=== PATIENT | female | born 1965 | race Caucasian/White ===

== ENCOUNTER → 2016-05-27 | Outpatient (CLI) | payer BC ==
[2016-05-27 18:43] LABS: BASO % 0.7 % (0.0-1.0); EOS # 0.2 K/mm3 (0.0-0.50); EOS % 2.9 % (0.0-3.0); LARGE UNSTAINED CELL # 0.1 K/mm3 (0.0-0.4); LARGE UNSTAINED CELL % 1.7 % (0.0-4.0); LYMPH # 1.8 K/mm3 (1.5-4.5); LYMPH % 31.5 % (24.0-44.0); MEAN CORPUSCULAR HEMOGLOBIN 28.7 pg (27.0-33.0); MEAN CORPUSCULAR HGB CONC 33.1 g/dl (32.0-36.5); MEAN CORPUSCULAR VOLUME 86.7 fl (80.0-96.0); MONO # 0.3 K/mm3 (0.0-0.8); MONO % 5.4 % (0.0-5.0); NEUTROPHILS % 57.7 % (36.0-66.0); PLATELET COUNT, AUTOMATED 236 k/mm3 (150-450); WHITE BLOOD COUNT 5.3 K/mm3 (4.0-10.0)
[2016-05-27 19:27] LABS: ALBUMIN 4.1 GM/DL (3.2-5.2); ALBUMIN/GLOBULIN RATIO 1.46 (1.00-1.93); ALKALINE PHOSPHATASE 90 U/L (45-117); ALT/SGPT 71 U/L (12-78); ANION GAP 6 MEQ/L (8-16); AST/SGOT 36 U/L (15-37); BILIRUBIN,TOTAL 0.4 MG/DL (0.2-1.0); BLOOD UREA NITROGEN 12 MG/DL (7-18); CALCIUM LEVEL 9.1 MG/DL (8.5-10.1); CARBON DIOXIDE LEVEL 29 MEQ/L (21-32); CHLORIDE LEVEL 105 MEQ/L (98-107); CREATININE FOR GFR 0.77 MG/DL (0.55-1.02); GLOMERULAR FILTRATION RATE > 60.0 (>58); GLUCOSE, FASTING 88 MG/DL (70-105); POTASSIUM SERUM 4.3 MEQ/L (3.5-5.1); SODIUM LEVEL 140 MEQ/L (136-145); TOTAL PROTEIN 6.9 GM/DL (6.4-8.2)
== END ==
LOC: M SMT 12:23
PROVIDERS: ATTEND Internal Medicine Gastroenterology
DX: K52.89 Other specified noninfective gastroenteritis and colitis (principal)

== ENCOUNTER → 2016-06-02 | Outpatient (CLI) | payer BC ==
[~2016-06-02] MED LIST: ATOR1TAB19 PO; LEXA1TAB PO; LIAL1.2T PO; LISI10TA4 PO; OMEP20CA3 PO; VITA50003 PO
--- NOTE | 2016-06-10 09:06 | DEXA ---
AP SPINE L1 - L4 1.196 0.0 -0.6 LT FEMUR TOTAL 1.116 0.9 0.6 RT FEMUR TOTAL 1.096 0.7 0.4 TOTAL BODY TOTAL OTHER DUAL FEMUR FRAX* ASSESSMENT Risk factors: Glucocorticoids (chronic), history of fracture ( adult). 10 year probability of fracture Major osteoporotic fracture 9.4 % Hip fracture 0.2 % COMMENTS: Normal bone densitometry of the spine and hips. FOLLOW-UP: Recommendation for the next bone density exam: 5 years. HUGH
== END ==
LOC: M WHC 13:36 → EDUNIT# 14:00
PROVIDERS: ATTEND Internal Medicine Gastroenterology
DX: Z79.52 Long term (current) use of systemic steroids (principal); K52.89 Other specified noninfective gastroenteritis and colitis

== ENCOUNTER → 2016-06-16 | Outpatient (CLI) | payer BC ==
[~2016-06-16] VITALS: Ht 166.4 cm; Wt 94.3 kg
[~2016-06-16] MED LIST changes: +LIDOCAINE 2% INJ 100 MG/5 ML SDV (FOR ANES.) As Ordered ONE; +NS 1,000 ML IV SCH; +PROPOFOL 200 MG/20 ML VIAL As Ordered ONE
--- NOTE | 2016-06-16 11:59 | ROOR ---
Patient Name: Bertha Garcia Procedure Date: 06/16/2016 11:34 AM Date of : 1965 Age: 51 Room: [facility], [facility] Gender: Female Note Status: Finalized Procedure: Colonoscopy Indications: High risk colon cancer surveillance: Inflammatory bowel disease Providers: Олег COLMENARES MD Referring MD: DONNY ROJAS MD Requesting Provider: Medicines: Monitored Anesthesia Care Complications: No immediate complications. Procedure: Pre-Anesthesia Assessment: - The heart rate, respiratory rate, oxygen saturations, blood pressure, adequacy of pulmonary ventilation, and response to care were monitored throughout the procedure. The Colonoscope was introduced through the anus and advanced to 10 cm into the ileum. The colonoscopy was performed without difficulty. The patient tolerated the procedure well. The quality of the bowel preparation was good. Findings: The perianal and digital rectal examinations were normal. The terminal ileum contained two scattered aphthae. This was biopsied with a cold forceps for histology. Segmental mild inflammation characterized by congestion (edema) and erythema was found in the rectum, in the recto-sigmoid colon and in the sigmoid colon. The exam was otherwise without abnormality. Biopsies were obtained with cold forceps for evaluation of inflammatory bowel disease. Impression: - Two Aphtha in the terminal ileum. Biopsied. - Segmental mild inflammation was found in the rectum, in the recto-sigmoid colon and in the sigmoid colon secondary to proctosigmoid colitis. - The examination was otherwise normal. - Segmental biopsies performed throughout. 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 However erosions/aphta in terminal ileum may be suggestive of ileocolonic crohns disease or an overlap syndrome--await biopsies of TI to delineate acute vs chronic.) Recommendation: - Telephone endoscopist for pathology results in 2 weeks. - Continue present medications. Олег Colmenares MD Олег COLMENARES MD 06/16/2016 11:58:47 AM This report has been signed electronically. Number of Addenda: 0 Note Initiated On: 06/16/2016 11:34 AM Estimated Blood Loss: Estimated blood loss: none.
[2016-06-16 12:10] VITALS: BP 140/82
== END | disposition home or self-care (01) ==
LOC: M OPP 09:30
PROVIDERS: ATTEND Internal Medicine Gastroenterology
DX: Z12.11 Encounter for screening for malignant neoplasm of colon (principal); K52.3 Indeterminate colitis; K63.89 Other specified diseases of intestine; I10 Essential (primary) hypertension; K50.90 Crohn's disease, unspecified, without complications; R12 Heartburn; R06.02 Shortness of breath; F41.9 Anxiety disorder, unspecified; E78.5 Hyperlipidemia, unspecified; G43.909 Migraine, unspecified, not intractable, without status migrainosus; R06.83 Snoring; K21.9 Gastro-esophageal reflux disease without esophagitis; Z87.410 Personal history of cervical dysplasia; Z87.891 Personal history of nicotine dependence; Z88.1 Allergy status to other antibiotic agents; Z79.899 Other long term (current) drug therapy; Z80.42 Family history of malignant neoplasm of prostate; Z80.8 Family history of malignant neoplasm of other organs or systems

== ENCOUNTER → 2017-04-09 | Outpatient (REF) | payer BC ==
[2017-04-09 15:37] LABS: LUTEINIZING HORMONE 0.8 mIU/mL
[2017-04-09 15:37] LABS: PROGESTERONE < 0.2 NG/ML
[2017-04-09 15:38] LABS: ESTRADIOL 109.6 PG/ML; FOLLICLE STIMULATING HORMONE 3.4 mIU/mL
[2017-04-13 00:06] LABS: TESTOSTERONE FREE (DIRECT) 3.2 pg/mL (0.0-4.2)
== END ==
LOC: M LAB REF 14:50
DX: N95.1 Menopausal and female climacteric states (principal)
CPT/HCPCS: 83001

== ENCOUNTER → 2018-04-07 | Outpatient (REF) | payer BC ==
[~2018-04-07] MED LIST changes: +CITA20TA4; -LIDOCAINE 2% INJ 100 MG/5 ML SDV (FOR ANES.) As Ordered ONE; +LOSA50TA88; -NS 1,000 ML IV SCH; +ONDA4TAB6; -PROPOFOL 200 MG/20 ML VIAL As Ordered ONE; +SULF1POW; +VITA1TAB27 PO; -VITA50003 PO; +VITA50005 PO
[2018-04-07 18:34] LABS: BASO # 0.1 10^3/uL (0.0-0.2); BASO % 0.7 % (0.0-1.0); EOS # 0.2 10^3/uL (0.0-0.50); EOS % 2.6 % (0.0-3.0); HEMATOCRIT 40.4 % (36.0-47.0); HEMOGLOBIN 13.6 g/dl (12.0-15.5); LYMPH # 1.8 10^3/uL (1.5-4.5); LYMPH % 25.8 % (24.0-44.0); MEAN CORPUSCULAR HEMOGLOBIN 29.4 pg (27.0-33.0); MEAN CORPUSCULAR HGB CONC 33.7 g/dl (32.0-36.5); MEAN CORPUSCULAR VOLUME 87.4 fl (80.0-96.0); MONO # 0.5 10^3/uL (0.0-0.8); NEUTROPHILS # 4.4 10^3/uL (1.8-7.7); NEUTROPHILS % 63.3 % (36.0-66.0); PLATELET COUNT, AUTOMATED 249 10^3/uL (150-450); RED BLOOD COUNT 4.62 10^6/uL (4.00-5.40); WHITE BLOOD COUNT 6.9 10^3/uL (4.0-10.0)
[2018-04-07 19:03] LABS: ALBUMIN 3.9 GM/DL (3.2-5.2); ALT/SGPT 24 U/L (12-78); BILIRUBIN,TOTAL 0.3 MG/DL (0.2-1.0); BLOOD UREA NITROGEN 14 MG/DL (7-18); C REACTIVE PROTEIN QUANTITATIV 0.32 MG/DL (0.00-0.30); CALCIUM LEVEL 8.7 MG/DL (8.5-10.1); CARBON DIOXIDE LEVEL 28 MEQ/L (21-32); CHLORIDE LEVEL 103 MEQ/L (98-107); FREE T4 0.88 NG/DL (0.76-1.46); GLOMERULAR FILTRATION RATE > 60.0 (>51); GLUCOSE, FASTING 79 MG/DL (70-100); POTASSIUM SERUM 4.3 MEQ/L (3.5-5.1); SODIUM LEVEL 138 MEQ/L (136-145); TOTAL PROTEIN 6.8 GM/DL (6.4-8.2); VITAMIN B12 LEVEL 608 PG/ML (247-911)
[2018-04-07 19:18] LABS: ERYTHROCYTE SEDIMENTATION RATE 8 mm/hr (0-30)
== END ==
LOC: M LABDRAWP 15:08
PROVIDERS: ATTEND Internal Medicine Gastroenterology
DX: K52.3 Indeterminate colitis (principal)

== ENCOUNTER 2018-04-13 13:50 | Emergency (ER) | payer BC ==
[~2018-04-13] VITALS: Ht 167.6 cm; Wt 90.9 kg
[~2018-04-13 13:50] MED LIST changes: -CITA20TA4; -LOSA50TA88; -ONDA4TAB6; -SULF1POW; -VITA1TAB27 PO
[2018-04-13] MEDS ORDERED: ONDA4TAB6 (14:08)
[2018-04-13] MEDS ORDERED: SULF1POW (14:08)
[2018-04-13] MEDS ORDERED: VITA1TAB27 PO (14:08)
[2018-04-13] MEDS ORDERED: CITA20TA4 (14:08)
[2018-04-13] MEDS ORDERED: LOSA50TA88 (14:08)
[2018-04-13] MEDS ORDERED: ONDANSETRON 4MG/2ML VIAL (J2405) IV ONE (14:30)
[2018-04-13] MEDS ORDERED: NS 1,000 ML IV ONE (14:30)
[2018-04-13 14:44] LABS: BASO % 0.8 % (0.0-1.0); EOS # 0.1 10^3/uL (0.0-0.50); EOS % 1.9 % (0.0-3.0); HEMATOCRIT 40.3 % (36.0-47.0); HEMOGLOBIN 13.7 g/dl (12.0-15.5); LYMPH # 0.6 10^3/uL (1.5-4.5); LYMPH % 11.6 % (24.0-44.0); MEAN CORPUSCULAR VOLUME 85.4 fl (80.0-96.0); MONO # 0.6 10^3/uL (0.0-0.8); MONO % 11.2 % (0.0-5.0); NEUTROPHILS # 3.9 10^3/uL (1.8-7.7); NEUTROPHILS % 74.1 % (36.0-66.0); PLATELET COUNT, AUTOMATED 212 10^3/uL (150-450); RED BLOOD COUNT 4.72 10^6/uL (4.00-5.40); WHITE BLOOD COUNT 5.3 10^3/uL (4.0-10.0)
[2018-04-13 15:12] LABS: ERYTHROCYTE SEDIMENTATION RATE 12 mm/hr (0-30)
[2018-04-13 15:14] LABS: ALBUMIN 3.7 GM/DL (3.2-5.2); ALT/SGPT 202 U/L (12-78); BILIRUBIN,DIRECT 0.1 MG/DL (0.0-0.2); BILIRUBIN,TOTAL 0.5 MG/DL (0.2-1.0); BLOOD UREA NITROGEN 6 MG/DL (7-18); C REACTIVE PROTEIN QUANTITATIV 1.52 MG/DL (0.00-0.30); CALCIUM LEVEL 8.5 MG/DL (8.5-10.1); CARBON DIOXIDE LEVEL 24 MEQ/L (21-32); CHLORIDE LEVEL 105 MEQ/L (98-107); GLOMERULAR FILTRATION RATE > 60.0 (>51); GLUCOSE, FASTING 93 MG/DL (70-100); LIPASE 63 U/L (73-393); POTASSIUM SERUM 3.7 MEQ/L (3.5-5.1); SODIUM LEVEL 138 MEQ/L (136-145); TOTAL PROTEIN 6.8 GM/DL (6.4-8.2)
[2018-04-13] MEDS: GASTROGRAFIN SOLUTION 30ML PO SCH ×3 (15:15→15:48)
[2018-04-13] MEDS ORDERED: ISOVUE-370 76% 100ML VIAL (Q9967) As Ordered ONE (16:44)
--- NOTE | 2018-04-13 17:47 | REP ---
CT ABDOMEN AND PELVIS WITH IV AND ORAL CONTRAST: 04/13/2018. Clinical history: Left-sided abdominal pain, history of Crohn disease. Technique: Oral Gastrografin mixture per our protocol given and bolus of 100 ml Isovue 370 with scanning through the abdomen and pelvis. Both coronal and sagittal reconstructions were provided. Findings: CT abdomen: No prior study. Lung bases are clear. The heart is not enlarged. There is no pericardial thickening or effusion. The liver, spleen, gallbladder, pancreas, adrenal glands and kidneys were grossly unremarkable. Fluid or oral contrast seen in small bowel loops without dilatation, wall thickening or inflammatory change. Cecum shows some slight thickening of its wall. However, the right colon to the hepatic flexure and mid transverse colon was unremarkable. The distal transverse colon, splenic flexure and left colon showed collapse and thickening of the wall without significant inflammatory changes adjacent. A few of the small bowel loops in the central abdomen show some wall thickening and mild stricturing. These are ones that are immediately subjacent to the left rectus and midline, best seen on image 72 and adjacent on the axial images. The remainder of the mid to distal small bowel loops until the terminal ileum were unremarkable. The aorta is without aneurysm. There are a few tiny periaortic, mesenteric and other retroperitoneal nodes. Bone windows show limbus vertebrae at L4 but no compression deformity, spondylolysis or other acute finding. Visualized ribs intact. CT pelvis: The bony sacrum, SI joints, iliac bones, hips and ischium were grossly intact. Distal left colon, sigmoid and rectum show collapse and some bowel wall thickening but no pericolonic inflammatory changes in the fat. Uterus absent. Vaginal cuff intact. No renal, ureteral or bladder stone and no hydronephrosis or hydroureter. No bladder wall thickening or mass. Mid to distal ileum intact until the terminal ileum where there was some wall thickening. Only mild ingris cecal inflammatory change. No ventral or inguinal hernia. Impression: 1. Evidence suggesting some chronic colitis involving the distal transverse colon through the rectum with bowel collapse and wall thickened and edematous but without inflammatory changes in the adjacent fat. 2. Terminal ileum and ileocecal valve region with the cecum show some wall thickening also suggestive of Crohn disease. I do not see ascites, abscess or mass. The appendix is seen and normal. 3. Solid organs in the upper abdomen, gallbladder, stomach and the abdominal wall grossly unremarkable. No hernia. No ascites. No adenopathy. Electronically Signed by Best Fernandez MD 04/13/2018 09:28 P
[2018-04-13 18:24] VITALS: BP 132/78
--- NOTE | 2018-04-18 20:46 | ED PDOC ---
Post-Departure Follow-Up victor hugo duncan faxed formal report of ct abd/p for fu Claudia Sargent MD Apr 18, 2018 20:46
== END 2018-04-13 18:27 | disposition home or self-care (01) ==
LOC: M ED 13:50
DX: A07.2 Cryptosporidiosis (principal); K50.90 Crohn's disease, unspecified, without complications; Z79.899 Other long term (current) drug therapy; Z88.1 Allergy status to other antibiotic agents; Z87.891 Personal history of nicotine dependence
CPT/HCPCS: 74177; 80048; 80076; 81001; 83605; 83690; 85025; 85652; 86140; 87507; 96361; 96374; 99284; J2405; Q9963; Q9967

== ENCOUNTER → 2018-07-22 | Outpatient (REF) | payer BC ==
[~2018-07-22] MED LIST changes: +CITA20TA6; +LOSA50TA88; +ONDA4TAB6; +SULF1POW; +VITA1TAB27 PO
[2018-07-22 11:59] LABS: BASO % 0.5 % (0.0-1.0); EOS # 0.2 10^3/uL (0.0-0.50); EOS % 2.6 % (0.0-3.0); HEMATOCRIT 38.5 % (36.0-47.0); HEMOGLOBIN 13.1 g/dl (12.0-15.5); LYMPH # 1.6 10^3/uL (1.5-4.5); MEAN CORPUSCULAR HEMOGLOBIN 29.4 pg (27.0-33.0); MEAN CORPUSCULAR VOLUME 86.5 fl (80.0-96.0); MONO # 0.4 10^3/uL (0.0-0.8); MONO % 7.1 % (0.0-5.0); NEUTROPHILS # 3.6 10^3/uL (1.8-7.7); NEUTROPHILS % 61.3 % (36.0-66.0); PLATELET COUNT, AUTOMATED 236 10^3/uL (150-450); RED BLOOD COUNT 4.45 10^6/uL (4.00-5.40); WHITE BLOOD COUNT 5.8 10^3/uL (4.0-10.0)
[2018-07-22 12:24] LABS: ERYTHROCYTE SEDIMENTATION RATE 9 mm/hr (0-30)
[2018-07-22 12:27] LABS: ALBUMIN 3.5 GM/DL (3.2-5.2); ALT/SGPT 23 U/L (12-78); BILIRUBIN,TOTAL 0.4 MG/DL (0.2-1.0); BLOOD UREA NITROGEN 15 MG/DL (7-18); CALCIUM LEVEL 8.4 MG/DL (8.5-10.1); CARBON DIOXIDE LEVEL 27 MEQ/L (21-32); CHLORIDE LEVEL 105 MEQ/L (98-107); CREATININE FOR GFR 0.81 MG/DL (0.55-1.30); GLOMERULAR FILTRATION RATE > 60.0 (>51); GLUCOSE, FASTING 105 MG/DL (70-100); SODIUM LEVEL 139 MEQ/L (136-145); TOTAL PROTEIN 6.9 GM/DL (6.4-8.2)
== END ==
LOC: M LABDRAWP 10:45
PROVIDERS: ATTEND Internal Medicine Gastroenterology
DX: K52.3 Indeterminate colitis (principal)

== ENCOUNTER → 2018-07-26 | Outpatient (REF) | payer BC | LOC: M LAB REF 10:06 | PROVIDERS: ATTEND Internal Medicine Gastroenterology | DX: K52.3 Indeterminate colitis (principal) ==

== ENCOUNTER → 2018-10-14 | Outpatient (REF) | payer BC ==
[~2018-10-14] MED LIST changes: -CITA20TA6; +CITA20TA6 PO; -LOSA50TA88; +LOSA50TA88 PO; +OMEP1CAP73 PO; -OMEP20CA3 PO; +VITA1CAP25 PO
[2018-10-14 10:48] LABS: ALBUMIN 3.6 GM/DL (3.2-5.2); ALT/SGPT 24 U/L (12-78); BILIRUBIN,TOTAL 0.4 MG/DL (0.2-1.0); BLOOD UREA NITROGEN 13 MG/DL (7-18); CALCIUM LEVEL 8.5 MG/DL (8.5-10.1); CARBON DIOXIDE LEVEL 30 MEQ/L (21-32); CHLORIDE LEVEL 104 MEQ/L (98-107); CHOLESTEROL LEVEL 218 MG/DL (<200); CHOLESTEROL RISK RATIO 5.891 (<5); CREATININE FOR GFR 0.78 MG/DL (0.55-1.30); GLOMERULAR FILTRATION RATE > 60.0 (>51); GLUCOSE, FASTING 80 MG/DL (70-100); HDL CHOLESTEROL 37 MG/DL (>40); LDL CHOLESTEROL 146 MG/DL (<100); NON-HDL-C 181 MG/DL; SODIUM LEVEL 140 MEQ/L (136-145); TOTAL PROTEIN 6.5 GM/DL (6.4-8.2); TRIGLYCERIDES LEVEL 173 MG/DL (<150)
== END ==
LOC: M LABDRAWP 08:36
PROVIDERS: ATTEND Family Medicine
DX: E78.5 Hyperlipidemia, unspecified (principal)

== ENCOUNTER → 2019-01-11 | Outpatient (REF) | payer BC ==
[~2019-01-11] MED LIST changes: -OMEP1CAP73 PO; +OMEP20CA4 PO
== END ==
LOC: M LAB REF 10:06
PROVIDERS: ATTEND Internal Medicine Gastroenterology
DX: R19.7 Diarrhea, unspecified (principal)

== ENCOUNTER 2019-01-13 09:37 | Day surgery (SDC) | payer BC ==
[~2019-01-13] VITALS: Ht 167.6 cm; Wt 91.2 kg
[~2019-01-13 09:37] MED LIST changes: +NS 1,000 ML IV ONE
[2019-01-13] MEDS ORDERED: PROPOFOL 200 MG/20 ML VIAL As Ordered ONE ×2 (10:52→10:53)
[2019-01-13] MEDS ORDERED: LIDOCAINE 2% INJ 100 MG/5 ML SDV (FOR ANES.) As Ordered ONE (10:53)
--- NOTE | 2019-01-13 11:07 | ROOR ---
Patient Name: Bertha Garcia Procedure Date: 01/13/2019 10:40 AM Date of : 1965 Age: 53 Room: [facility] Gender: Female Note Status: Finalized Procedure: Colonoscopy Indications: Diarrhea, Suspected Crohn's disease Providers: Олег CERVANTES MD Referring MD: Best Hutchison DO Requesting Provider: Medicines: Monitored Anesthesia Care Complications: No immediate complications. Procedure: Pre-Anesthesia Assessment: - The heart rate, respiratory rate, oxygen saturations, blood pressure, adequacy of pulmonary ventilation, and response to care were monitored throughout the procedure. The Colonoscope was introduced through the anus and advanced to 15 cm into the ileum. The colonoscopy was performed without difficulty. The patient tolerated the procedure well. The quality of the bowel preparation was good. Findings: The perianal and digital rectal examinations were normal. Multiple scattered erosions were found in the rectum, in the sigmoid colon and in the descending colon. This was biopsied with a cold forceps for histology. The terminal ileum contained a few scattered aphthae. This was biopsied with a cold forceps for histology. The exam was otherwise without abnormality on direct and retroflexion views. Impression: - Multiple (10-15) small shallow erosions/aphtha in the rectum, in the sigmoid colon and in the descending colon. Biopsied. - Multiple (7-10) small shallow erosions/aphtha in the terminal ileum. Biopsied. - The examination was otherwise normal on direct and retroflexion views. Recommendation: - Your earlier stool testing showed you had/have E coli infection in stool. --I will start you on antibiotic for 5 days.--Sent to your pharmacy - Return to my office in 2 weeks. (to discuss biopsies and additional treatment if necessary for crohns disease) Олег Cervantes MD Олег CERVANTES MD 01/13/2019 11:06:44 AM Electronically signed by Олег CERVANTES MD Number of Addenda: 0 Note Initiated On: 01/13/2019 10:40 AM Estimated Blood Loss: Estimated blood loss: none.
[2019-01-13 11:30] VITALS: BP 129/78
== END 2019-01-13 11:34 | disposition home or self-care (01) ==
LOC: M OPP 09:37
PROVIDERS: ATTEND Internal Medicine Gastroenterology
DX: K62.6 Ulcer of anus and rectum (principal); K63.89 Other specified diseases of intestine; R19.7 Diarrhea, unspecified; K21.9 Gastro-esophageal reflux disease without esophagitis; Z79.899 Other long term (current) drug therapy; Z99.2 Dependence on renal dialysis; Z88.1 Allergy status to other antibiotic agents; Z87.891 Personal history of nicotine dependence; Z80.42 Family history of malignant neoplasm of prostate; Z80.0 Family history of malignant neoplasm of digestive organs; Z87.19 Personal history of other diseases of the digestive system

== ENCOUNTER 2019-05-30 09:03 | Outpatient (CLI) | payer BC ==
[~2019-05-30] VITALS: Ht 165.1 cm; Wt 97.5 kg
[~2019-05-30 09:03] MED LIST changes: -NS 1,000 ML IV ONE; +OMEP1CAP73 PO; -OMEP20CA4 PO
[2019-05-30] MEDS ORDERED: VEDOLIZUMAB 300 MG in NS 250 ML IV ONE (09:15)
[2019-05-30 09:38] VITALS: BP 148/81
[2019-05-30 10:50] VITALS: BP 139/82
== END 2019-05-30 11:00 | disposition home or self-care (01) ==
LOC: M INFU 09:03
PROVIDERS: ATTEND Internal Medicine Gastroenterology
DX: K51.90 Ulcerative colitis, unspecified, without complications (principal)
CPT/HCPCS: 96365; J3380

== ENCOUNTER 2019-06-13 08:47 | Outpatient (CLI) | payer BC ==
[~2019-06-13] VITALS: Ht 167.6 cm; Wt 97.5 kg
[2019-06-13 09:00] VITALS: BP 137/78
[2019-06-13] MEDS ORDERED: VEDOLIZUMAB 300 MG in NS 250 ML IV ONE (09:00)
== END 2019-06-13 10:15 | disposition home or self-care (01) ==
LOC: M INFU 08:47
PROVIDERS: ATTEND Internal Medicine Gastroenterology
DX: K50.90 Crohn's disease, unspecified, without complications (principal); Z88.1 Allergy status to other antibiotic agents
CPT/HCPCS: 96365; J3380

== ENCOUNTER → 2019-06-15 | Outpatient (CLI) | payer BC ==
[2019-06-15 16:23] LABS: ALBUMIN 3.9 GM/DL (3.2-5.2); ALT/SGPT 25 U/L (12-78); BILIRUBIN,TOTAL 0.3 MG/DL (0.2-1.0); BLOOD UREA NITROGEN 13 MG/DL (7-18); CALCIUM LEVEL 8.9 MG/DL (8.5-10.1); CARBON DIOXIDE LEVEL 28 MEQ/L (21-32); CHLORIDE LEVEL 103 MEQ/L (98-107); CREATININE FOR GFR 0.86 MG/DL (0.55-1.30); GLOMERULAR FILTRATION RATE > 60.0 (>51); GLUCOSE, FASTING 89 MG/DL (70-100); SODIUM LEVEL 136 MEQ/L (136-145); TOTAL PROTEIN 7.1 GM/DL (6.4-8.2)
== END ==
LOC: M PLALAB 12:47
PROVIDERS: ATTEND Family Medicine
DX: I10 Essential (primary) hypertension (principal)

== ENCOUNTER 2019-07-11 08:38 | Outpatient (CLI) | payer BC ==
[~2019-07-11] VITALS: Ht 167.6 cm; Wt 97.5 kg
[2019-07-11 08:43] VITALS: BP 140/88
[2019-07-11] MEDS ORDERED: VEDOLIZUMAB 300 MG in NS 250 ML IV ONE (08:45)
[2019-07-11 09:40] VITALS: BP 136/81
== END 2019-07-11 09:40 | disposition home or self-care (01) ==
LOC: M INFU 08:38
PROVIDERS: ATTEND Internal Medicine Gastroenterology
DX: K50.90 Crohn's disease, unspecified, without complications (principal)
CPT/HCPCS: 96365; J3380

== ENCOUNTER 2019-09-05 08:55 | Outpatient (CLI) | payer BC ==
[~2019-09-05] VITALS: Ht 167.6 cm; Wt 97.5 kg
[2019-09-05 08:30] VITALS: BP 137/76
[2019-09-05] MEDS ORDERED: VEDOLIZUMAB 300 MG in NS 250 ML IV ONE (09:15)
[2019-09-05 10:25] VITALS: BP 134/72
== END 2019-09-05 10:25 | disposition home or self-care (01) ==
LOC: M INFU 08:55
PROVIDERS: ATTEND Internal Medicine Gastroenterology
DX: K50.90 Crohn's disease, unspecified, without complications (principal)
CPT/HCPCS: 96365; J3380

== ENCOUNTER → 2019-10-31 | Outpatient (CLI) | payer BC ==
[~2019-10-31] MED LIST changes: +ENTY1INJ IV
== END ==
LOC: M INFU 15:54
PROVIDERS: ATTEND Internal Medicine Gastroenterology
DX: K50.90 Crohn's disease, unspecified, without complications (principal)

== ENCOUNTER 2019-12-26 08:53 | Outpatient (CLI) | payer BC ==
[~2019-12-26] VITALS: Ht 167.6 cm; Wt 97.5 kg
[~2019-12-26 08:53] MED LIST changes: -ENTY1INJ IV
[2019-12-26] MEDS ORDERED: VEDOLIZUMAB 300 MG in NS 250 ML IV ONE (09:00)
[2019-12-26 09:09] VITALS: BP 143/78
[2019-12-26 09:12] VITALS: BP 143/78
[2019-12-26] MEDS ORDERED: ENTY1INJ IV (09:23)
[2019-12-26 10:10] VITALS: BP 132/83
[2020-01-02 09:35] LABS: TPMTGEN1 SEE SEPARATE REPORT
== END 2019-12-26 10:10 | disposition home or self-care (01) ==
LOC: M INFU 08:53
PROVIDERS: ATTEND Internal Medicine Gastroenterology
DX: K50.90 Crohn's disease, unspecified, without complications (principal); Z88.1 Allergy status to other antibiotic agents
CPT/HCPCS: 36415; 81335; 82542; 82657; 96365; J3380

== ENCOUNTER 2020-02-20 08:57 | Outpatient (CLI) | payer BC ==
[~2020-02-20] VITALS: Ht 167.6 cm; Wt 97.5 kg
[~2020-02-20 08:57] MED LIST changes: +ENTY1INJ IV
[2020-02-20] MEDS ORDERED: VEDOLIZUMAB 300 MG in NS 250 ML IV ONE (09:00)
[2020-02-20 09:05] VITALS: BP 136/79
[2020-02-20 10:05] VITALS: BP 134/77
== END 2020-02-20 10:15 | disposition home or self-care (01) ==
LOC: M INFU 08:57
PROVIDERS: ATTEND Internal Medicine Gastroenterology
DX: K51.90 Ulcerative colitis, unspecified, without complications (principal)
CPT/HCPCS: 96365; J3380

== ENCOUNTER → 2020-02-29 | Outpatient (CLI) | payer BC ==
--- NOTE | 2020-03-01 15:00 | SLEEPHOME ---
DIAGNOSTIC HOME SLEEP TEST DATE: 02/29/2020 ORDERED BY: Janey Avilez NP Diagnostic home sleep testing was performed due to concern for the obstructive sleep apnea syndrome. For testing, a nocturnal T3 respiratory monitoring device was used. Continuous record was made of pulse, oxygen saturation, air flow, chest and abdominal strain, and body position. 9 hours and 59 minutes of data were reviewed. There were 6 hours and 17 minutes marked as time in bed. During the interval marked time in bed, there were 169 respiratory events identified of 10 seconds in duration or greater for a respiratory event index 26.9. The events were primarily obstructive. Baseline pulse rate 65. Pulse rate range 52 to 91. Baseline saturation was 94%. Saturations fell to 84%. Testing was performed in both the supine and non-supine positions. IMPRESSION: Abnormal home sleep testing with repetitive respiratory events and oxygen desaturations to 84% with a respiratory event index of 26.9 is consistent with the obstructive sleep apnea syndrome. RECOMMENDATION: The patient should be encouraged to undergo a formal sleep evaluation.
== END ==
LOC: M SLEEP HO 10:19
PROVIDERS: ATTEND Nurse Practitioner Adult Health
DX: G47.30 Sleep apnea, unspecified (principal); R06.83 Snoring; R40.0 Somnolence

== ENCOUNTER 2020-04-16 08:45 | Outpatient (CLI) | payer BC ==
[~2020-04-16] VITALS: Ht 167.6 cm; Wt 97.5 kg
[2020-04-16] MEDS ORDERED: VEDOLIZUMAB 300 MG in NS 250 ML IV ONE (09:00)
[2020-04-16 09:03] VITALS: BP 122/74
[2020-04-16 09:04] VITALS: BP 122/74
[2020-04-16 09:57] VITALS: BP 116/71
== END 2020-04-16 10:00 | disposition home or self-care (01) ==
LOC: M INFU 08:45
PROVIDERS: ATTEND Internal Medicine Gastroenterology
DX: K51.90 Ulcerative colitis, unspecified, without complications (principal); Z88.8 Allergy status to other drugs, medicaments and biological substances
CPT/HCPCS: 96365; J3380

== ENCOUNTER → 2020-04-16 | Outpatient (CLI) | payer BC ==
[~2020-04-16] MED LIST changes: +LISI10TA22 PO; -LISI10TA4 PO
[2020-04-16 10:25] LABS: ALBUMIN 3.6 GM/DL (3.2-5.2); ALT/SGPT 29 U/L (12-78); BILIRUBIN,TOTAL 0.5 MG/DL (0.2-1.0); BLOOD UREA NITROGEN 12 MG/DL (7-18); CALCIUM LEVEL 8.8 MG/DL (8.5-10.1); CARBON DIOXIDE LEVEL 25 MEQ/L (21-32); CHLORIDE LEVEL 105 MEQ/L (98-107); CREATININE FOR GFR 0.82 MG/DL (0.55-1.30); GLOMERULAR FILTRATION RATE > 60.0 (>51); GLUCOSE, FASTING 84 MG/DL (70-100); POTASSIUM SERUM 4.9 MEQ/L (3.5-5.1); SODIUM LEVEL 137 MEQ/L (136-145); TOTAL PROTEIN 6.9 GM/DL (6.4-8.2)
== END ==
LOC: M LAB 08:58
PROVIDERS: ATTEND Family Medicine
DX: I10 Essential (primary) hypertension (principal)

== ENCOUNTER → 2020-05-14 | Outpatient (CLI) | payer BC ==
--- NOTE | 2020-05-15 13:33 | SLEEPCENT ---
NOCTURNAL POLYSOMNOGRAPHY CPAP TITRATION DATE: 05/14/2020 ORDERED BY: Janey Avilez NP Nocturnal polysomnography was performed for the titration of pressure therapy in this patient with obstructive sleep apnea syndrome with apnea-hypopnea index of 26.9. For testing, the patient was fit with a ResMed Mirage FX nasal mask of standard size was used, 4 cm of water pressure were applied to the circuit, and the lights were extinguished. 8 hours and 20 minutes of data were reviewed. There were 421 minutes of sleep identified. Sleep latency was mildly prolonged at 39 minutes. REM latency was prolonged at 135 minutes. Sleep architecture was good with three REM cycles. Overall sleep efficiency was 84.8%. The patient's electrocardiogram showed a sinus rhythm with an average heart rate of 56 beats per minute. EEG showed normal waveforms for wake and sleep. Respiratory events were fully palliated with CPAP at a pressure of +9. There was some minor limb activity noted and snoring early in the study. IMPRESSION: Obstructive sleep apnea syndrome (G47.33). RECOMMENDATION: Nightly use of pressure therapy 9 cm of water.
== END ==
LOC: M SLEEP 20:00
PROVIDERS: ATTEND Nurse Practitioner Adult Health
DX: G47.33 Obstructive sleep apnea (adult) (pediatric) (principal)

== ENCOUNTER → 2020-06-03 | Outpatient (CLI) | payer BC ==
[2020-06-03 11:41] LABS: BASO % 0.7 % (0.0-1.0); EOS # 0.2 10^3/uL (0.0-0.5); HEMATOCRIT 40.1 % (36.0-47.0); HEMOGLOBIN 13.1 g/dl (12.0-15.5); LYMPH # 1.6 10^3/uL (1.5-5.0); LYMPH % 28.6 % (24.0-44.0); MEAN CORPUSCULAR HGB CONC 32.7 g/dl (32.0-36.5); MEAN CORPUSCULAR VOLUME 88.9 fl (80.0-96.0); MONO # 0.5 10^3/uL (0.0-0.8); MONO % 7.9 % (2.0-8.0); NEUTROPHILS # 3.4 10^3/uL (1.5-8.5); NEUTROPHILS % 59.1 % (36.0-66.0); PLATELET COUNT, AUTOMATED 219 10^3/uL (150-450); RED BLOOD COUNT 4.51 10^6/uL (4.00-5.40); WHITE BLOOD COUNT 5.7 10^3/uL (4.0-10.0)
[2020-06-03 11:58] LABS: ERYTHROCYTE SEDIMENTATION RATE 9 mm/hr (0-30)
[2020-06-03 12:22] LABS: ALT/SGPT 27 U/L (12-78); BILIRUBIN,TOTAL 0.5 MG/DL (0.2-1.0); BLOOD UREA NITROGEN 16 MG/DL (7-18); CARBON DIOXIDE LEVEL 29 MEQ/L (21-32); CHLORIDE LEVEL 107 MEQ/L (98-107); CREATININE FOR GFR 0.75 MG/DL (0.55-1.30); FREE T4 0.89 NG/DL (0.76-1.46); GLOMERULAR FILTRATION RATE > 60.0 (>51); GLUCOSE, FASTING 86 MG/DL (70-100); IRON (FE) 68 UG/DL (50-170); PERCENT SATURATION 23.2 % (13.2-45.0); POTASSIUM SERUM 4.1 MEQ/L (3.5-5.1); SODIUM LEVEL 140 MEQ/L (136-145); TOTAL IRON BINDING CAPACITY 293 UG/DL (250-450); VITAMIN B12 LEVEL 467 PG/ML (247-911)
== END ==
LOC: M LAB 10:06
PROVIDERS: ATTEND Internal Medicine Gastroenterology
DX: K50.818 Crohn's disease of both small and large intestine with other complication (principal)

== ENCOUNTER → 2020-06-04 | Outpatient (REF) | payer BC | LOC: M LAB REF 11:43 | PROVIDERS: ATTEND Internal Medicine Gastroenterology | DX: K50.818 Crohn's disease of both small and large intestine with other complication (principal) ==

== ENCOUNTER 2020-06-11 09:21 | Outpatient (CLI) | payer BC ==
[~2020-06-11] VITALS: Ht 167.6 cm; Wt 97.5 kg
[~2020-06-11 09:21] MED LIST changes: +VEDOLIZUMAB 300 MG in NS 250 ML IV ONE
[2020-06-11 09:44] VITALS: BP 127/78
[2020-06-11 10:41] VITALS: BP 124/79
== END 2020-06-11 10:41 | disposition home or self-care (01) ==
LOC: M INFU 09:21
PROVIDERS: ATTEND Internal Medicine Gastroenterology
DX: K51.90 Ulcerative colitis, unspecified, without complications (principal)
CPT/HCPCS: 96365; J3380

== ENCOUNTER 2020-08-06 13:02 | Outpatient (CLI) | payer BC ==
[~2020-08-06] VITALS: Ht 167.6 cm; Wt 97.5 kg
[~2020-08-06 13:02] MED LIST changes: -VEDOLIZUMAB 300 MG in NS 250 ML IV ONE
[2020-08-06] MEDS ORDERED: VEDOLIZUMAB 300 MG in NS 250 ML IV ONE (14:00)
[2020-08-06 14:04] VITALS: BP 162/74
[2020-08-06 14:05] VITALS: BP 162/74
[2020-08-06 15:17] VITALS: BP 156/82
== END 2020-08-06 15:15 | disposition home or self-care (01) ==
LOC: M INFU 13:02
PROVIDERS: ATTEND Internal Medicine Gastroenterology
DX: K51.90 Ulcerative colitis, unspecified, without complications (principal)
CPT/HCPCS: 96365; J3380

== ENCOUNTER 2020-10-08 12:51 | Outpatient (CLI) | payer BC ==
[~2020-10-08] VITALS: Ht 167.6 cm; Wt 97.5 kg
[2020-10-08 13:08] VITALS: BP 126/83
[2020-10-08] MEDS ORDERED: VEDOLIZUMAB 300 MG in NS 250 ML IV ONE (13:30)
[2020-10-08 14:10] VITALS: BP 138/67
== END 2020-10-08 14:10 | disposition home or self-care (01) ==
LOC: M INFU 12:51
PROVIDERS: ATTEND Internal Medicine Gastroenterology
DX: K51.90 Ulcerative colitis, unspecified, without complications (principal)
CPT/HCPCS: 96365; J3380

== ENCOUNTER → 2020-12-13 | Outpatient (CLI) | payer BC ==
[2020-12-13 13:23] LABS: BASO % 0.5 % (0.0-1.0); EOS # 0.1 10^3/uL (0.0-0.5); EOS % 2.1 % (0.0-3.0); HEMATOCRIT 42.1 % (36.0-47.0); HEMOGLOBIN 13.9 g/dl (12.0-15.5); LYMPH # 1.8 10^3/uL (1.5-5.0); LYMPH % 28.9 % (24.0-44.0); MEAN CORPUSCULAR HEMOGLOBIN 28.5 pg (27.0-33.0); MEAN CORPUSCULAR VOLUME 86.3 fl (80.0-96.0); MONO # 0.3 10^3/uL (0.0-0.8); MONO % 5.4 % (2.0-8.0); NEUTROPHILS # 3.9 10^3/uL (1.5-8.5); NEUTROPHILS % 62.3 % (36.0-66.0); PLATELET COUNT, AUTOMATED 255 10^3/uL (150-450); RED BLOOD COUNT 4.88 10^6/uL (4.00-5.40); WHITE BLOOD COUNT 6.3 10^3/uL (4.0-10.0)
[2020-12-13 13:56] LABS: ERYTHROCYTE SEDIMENTATION RATE 12 mm/hr (0-30)
[2020-12-13 14:02] LABS: ALBUMIN 3.6 GM/DL (3.2-5.2); ALT/SGPT 24 U/L (12-78); BILIRUBIN,TOTAL 0.4 MG/DL (0.2-1.0); BLOOD UREA NITROGEN 12 MG/DL (7-18); CALCIUM LEVEL 8.9 MG/DL (8.5-10.1); CARBON DIOXIDE LEVEL 30 MEQ/L (21-32); CHLORIDE LEVEL 105 MEQ/L (98-107); CREATININE FOR GFR 0.93 MG/DL (0.55-1.30); GLOMERULAR FILTRATION RATE > 60.0 (>51); GLUCOSE, FASTING 89 MG/DL (70-100); POTASSIUM SERUM 4.2 MEQ/L (3.5-5.1); SODIUM LEVEL 138 MEQ/L (136-145); TOTAL PROTEIN 7.3 GM/DL (6.4-8.2)
== END ==
LOC: M PLALAB 10:56
PROVIDERS: ATTEND Internal Medicine Gastroenterology
DX: K52.3 Indeterminate colitis (principal)

== ENCOUNTER 2020-12-18 08:47 | Outpatient (CLI) | payer BC ==
[~2020-12-18] VITALS: Ht 167.6 cm; Wt 97.5 kg
[~2020-12-18 08:47] MED LIST changes: +VEDOLIZUMAB 300 MG in NS 250 ML IV ONE
[2020-12-18 08:50] VITALS: BP_SYST 139; BP_SYST 144; BP_DIAS 81; BP_DIAS 86
[2020-12-18 10:01] VITALS: BP 127/77
== END 2020-12-18 10:05 | disposition home or self-care (01) ==
LOC: M INFU 08:47
PROVIDERS: ATTEND Internal Medicine Gastroenterology
DX: K51.90 Ulcerative colitis, unspecified, without complications (principal); Z88.8 Allergy status to other drugs, medicaments and biological substances
CPT/HCPCS: 96365; J3380

== ENCOUNTER → 2020-12-18 | Outpatient (REF) | payer BC | LOC: M LAB REF 09:33 | PROVIDERS: ATTEND Internal Medicine Gastroenterology | DX: K52.3 Indeterminate colitis (principal) ==

== ENCOUNTER → 2020-12-19 | Outpatient (CLI) | payer BC ==
[~2020-12-19] MED LIST changes: +GLUCAGON INJ 1MG VIAL As Ordered ONE; +ISOVUE-370 76% 100ML VIAL As Ordered ONE; +NEULUMEX 0.1% SUSPENSION 450ML BOTTLE (FORMERLY VOLUMEN) As Ordered ONE; -VEDOLIZUMAB 300 MG in NS 250 ML IV ONE
--- NOTE | 2020-12-19 15:59 | REPVR ---
PROCEDURE INFORMATION: Exam: CT Abdomen And Pelvis With Contrast Exam date and time: 12/19/2020 2:37 PM Age: 55 years old Clinical indication: Condition or disease; Intestinal condition; Crohn's disease; Additional info: K52.3 crohns w/ colitis, wt loss TECHNIQUE: Imaging protocol: Computed tomography of the abdomen and pelvis with contrast. Axial, coronal and sagittal reformatted images were created and reviewed. 3D rendering (Not supervised by radiologist): MIP and/or 3D reconstructed images were created by the technologist. Radiation optimization: All CT scans at this facility use at least one of these dose optimization techniques: automated exposure control; mA and/or kV adjustment per patient size (includes targeted exams where dose is matched to clinical indication); or iterative reconstruction. Contrast material: ISOVUE 370; Contrast volume: 100 ml; Contrast route: INTRAVENOUS (IV); COMPARISON: CT ABD/PEL W/IV ORAL CONTRAS 04/13/2018 4:54 PM FINDINGS: Liver: Unremarkable. Gallbladder and bile ducts: No radiodense gallstones. No biliary ductal dilatation. Pancreas: Unremarkable. Spleen: Unremarkable. Adrenal glands: Normal. No mass. Kidneys and ureters: No mass. No radiodense calculi. No hydronephrosis. Stomach and bowel: Scattered colonic diverticula without evidence of diverticulitis. No obstruction. No bowel wall thickening. No pneumatosis. Appendix: Normal. Intraperitoneal space: No free fluid. No organized fluid collection. No free air. Vasculature: Minimal atherosclerotic disease. No aneurysm or dissection. Lymph nodes: No pathologically enlarged lymph nodes. Urinary bladder: Unremarkable as visualized. Reproductive: Status post hysterectomy. Bones/joints: No acute osseous abnormality. Osteopenia. Mild degenerative changes. Limbus L4 vertebra. Soft tissues: Small, fat containing umbilical hernia. IMPRESSION: 1. No CT evidence of acute intra-abdominal or pelvic pathology. 2. Additional findings, as above. Electronically signed by: Lalito Gonzalez On 12/19/2020 15:59:31 PM
== END ==
LOC: M RAD 12:26
PROVIDERS: ATTEND Internal Medicine Gastroenterology
DX: K52.3 Indeterminate colitis (principal); K50.818 Crohn's disease of both small and large intestine with other complication; R63.4 Abnormal weight loss
CPT/HCPCS: 74177; J1610; Q9967

== ENCOUNTER 2021-02-12 08:18 | Outpatient (CLI) | payer BC ==
[~2021-02-12] VITALS: Ht 167.6 cm; Wt 92.9 kg
[~2021-02-12 08:18] MED LIST changes: -LOSA50TA28 PO; +LOSA50TA88 PO
[2021-02-12 08:45] VITALS: BP 133/76
[2021-02-12] MEDS ORDERED: VEDOLIZUMAB 300 MG in NS 250 ML IV ONE (09:00)
[2021-02-12 10:15] VITALS: BP 128/70
== END 2021-02-12 10:15 | disposition home or self-care (01) ==
LOC: M INFU 08:18
PROVIDERS: ATTEND Internal Medicine Gastroenterology
DX: K51.90 Ulcerative colitis, unspecified, without complications (principal); Z88.8 Allergy status to other drugs, medicaments and biological substances
CPT/HCPCS: 96365; J3380

== ENCOUNTER → 2021-02-12 | Outpatient (CLI) | payer BC ==
[~2021-02-12] MED LIST changes: -GLUCAGON INJ 1MG VIAL As Ordered ONE; -ISOVUE-370 76% 100ML VIAL As Ordered ONE; +LOSA50TA28 PO; -LOSA50TA88 PO; -NEULUMEX 0.1% SUSPENSION 450ML BOTTLE (FORMERLY VOLUMEN) As Ordered ONE
[2021-02-12 09:36] LABS: BASO % 0.9 % (0.0-1.0); EOS # 0.2 10^3/uL (0.0-0.5); EOS % 4.6 % (0.0-3.0); HEMATOCRIT 38.8 % (36.0-47.0); HEMOGLOBIN 13.2 g/dl (12.0-15.5); LYMPH # 1.7 10^3/uL (1.5-5.0); LYMPH % 37.4 % (24.0-44.0); MEAN CORPUSCULAR HEMOGLOBIN 28.8 pg (27.0-33.0); MEAN CORPUSCULAR VOLUME 84.7 fl (80.0-96.0); MONO # 0.3 10^3/uL (0.0-0.8); MONO % 7.4 % (2.0-8.0); NEUTROPHILS # 2.3 10^3/uL (1.5-8.5); PLATELET COUNT, AUTOMATED 242 10^3/uL (150-450); RED BLOOD COUNT 4.58 10^6/uL (4.00-5.40); WHITE BLOOD COUNT 4.6 10^3/uL (4.0-10.0)
[2021-02-12 10:09] LABS: ALBUMIN 3.6 GM/DL (3.2-5.2); ALT/SGPT 36 U/L (12-78); BILIRUBIN,TOTAL 0.3 MG/DL (0.2-1.0); BLOOD UREA NITROGEN 15 MG/DL (7-18); CALCIUM LEVEL 8.8 MG/DL (8.5-10.1); CARBON DIOXIDE LEVEL 25 MEQ/L (21-32); CHLORIDE LEVEL 109 MEQ/L (98-107); CHOLESTEROL LEVEL 244 MG/DL (<200); CHOLESTEROL RISK RATIO 6.594 (<5); CREATININE FOR GFR 0.72 MG/DL (0.55-1.30); GLOMERULAR FILTRATION RATE > 60.0 (>51); GLUCOSE, FASTING 90 MG/DL (70-100); HDL CHOLESTEROL 37 MG/DL (>40); LDL CHOLESTEROL 170 MG/DL (<100); NON-HDL-C 207 MG/DL; POTASSIUM SERUM 4.6 MEQ/L (3.5-5.1); SODIUM LEVEL 139 MEQ/L (136-145); TOTAL PROTEIN 6.9 GM/DL (6.4-8.2); TRIGLYCERIDES LEVEL 184 MG/DL (<150)
[2021-02-12 10:59] LABS: CREATININE, URINE 97.6 MG/DL; MALB URINE SIEMENS 7.2 MG/L; MAU/CREAT RATIO 7.3 MCG/MG (0.0-30.0)
== END ==
LOC: M LAB 08:51
PROVIDERS: ATTEND Family Medicine
DX: E78.5 Hyperlipidemia, unspecified (principal)

== ENCOUNTER 2021-04-09 08:50 | Outpatient (CLI) | payer BC ==
[~2021-04-09] VITALS: Ht 167.6 cm; Wt 92.9 kg
[2021-04-09 08:50] VITALS: BP 143/85
[~2021-04-09 08:50] MED LIST changes: +LOSA50TA28 PO; -LOSA50TA88 PO; +VEDOLIZUMAB 300 MG in NS 250 ML IV ONE
[2021-04-09 09:59] VITALS: BP 140/85
== END 2021-04-09 10:00 | disposition home or self-care (01) ==
LOC: M INFU 08:50
PROVIDERS: ATTEND Internal Medicine Gastroenterology
DX: K51.90 Ulcerative colitis, unspecified, without complications (principal); Z88.8 Allergy status to other drugs, medicaments and biological substances
CPT/HCPCS: 96365; J3380

== ENCOUNTER → 2021-04-21 | Outpatient (CLI) | payer BC ==
[~2021-04-21] MED LIST changes: -VEDOLIZUMAB 300 MG in NS 250 ML IV ONE
== END ==
LOC: M WHC 13:30
PROVIDERS: ATTEND Family Medicine
DX: Z12.31 Encounter for screening mammogram for malignant neoplasm of breast (principal); M85.80 Other specified disorders of bone density and structure, unspecified site

== ENCOUNTER 2021-07-30 08:29 | Outpatient (CLI) | payer BC ==
[~2021-07-30] VITALS: Ht 167.6 cm; Wt 93.8 kg
[2021-07-30 08:35] VITALS: BP 129/78
[2021-07-30] MEDS ORDERED: VEDOLIZUMAB 300 MG in NS 250 ML IV ONE (09:00)
[2021-07-30 10:00] VITALS: BP 145/82
== END 2021-07-30 10:00 | disposition home or self-care (01) ==
LOC: M INFU 08:29
PROVIDERS: ATTEND Internal Medicine Gastroenterology
DX: K51.90 Ulcerative colitis, unspecified, without complications (principal); Z88.8 Allergy status to other drugs, medicaments and biological substances
CPT/HCPCS: 96365; J3380

== ENCOUNTER 2021-09-24 08:40 | Outpatient (CLI) | payer BC ==
[~2021-09-24] VITALS: Ht 167.6 cm; Wt 93.8 kg
[2021-09-24 08:40] VITALS: BP 142/72
[2021-09-24] MEDS ORDERED: VEDOLIZUMAB 300 MG in NS 250 ML IV ONE (09:00)
[2021-09-24 10:00] VITALS: BP 128/78
== END 2021-09-24 10:00 ==
LOC: M INFU 08:40
PROVIDERS: ATTEND Internal Medicine Gastroenterology
DX: K51.919 Ulcerative colitis, unspecified with unspecified complications (principal); Z88.1 Allergy status to other antibiotic agents
CPT/HCPCS: 96365; J3380

== ENCOUNTER 2021-11-26 13:05 | Outpatient (CLI) | payer BC ==
[~2021-11-26] VITALS: Ht 167.6 cm; Wt 93.8 kg
[2021-11-26 13:05] VITALS: BP 128/72
[2021-11-26 14:43] VITALS: BP 126/64
[2021-11-26] MEDS ORDERED: VEDOLIZUMAB 300 MG in NS 250 ML IV ONE (15:00)
== END 2021-11-26 14:50 | disposition home or self-care (01) ==
LOC: M INFU 13:05
PROVIDERS: ATTEND Internal Medicine Gastroenterology
DX: K51.90 Ulcerative colitis, unspecified, without complications (principal); Z88.1 Allergy status to other antibiotic agents
CPT/HCPCS: 96365; J3380

== ENCOUNTER 2022-01-21 14:20 | Outpatient (CLI) | payer BC ==
[~2022-01-21] VITALS: Ht 167.6 cm; Wt 90.7 kg
[2022-01-21 14:20] VITALS: BP 128/80
[2022-01-21] MEDS ORDERED: VEDOLIZUMAB 300 MG in NS 250 ML IV ONE (15:00)
== END 2022-01-21 16:20 | disposition home or self-care (01) ==
LOC: M INFU 14:20
PROVIDERS: ATTEND Internal Medicine Gastroenterology
DX: K50.90 Crohn's disease, unspecified, without complications (principal)
CPT/HCPCS: 96365; J3380

== ENCOUNTER 2022-03-18 14:20 | Outpatient (CLI) | payer BC ==
[~2022-03-18] VITALS: Ht 170.2 cm; Wt 88.2 kg
[2022-03-18 14:20] VITALS: BP 128/79
[2022-03-18] MEDS ORDERED: VEDOLIZUMAB 300 MG in NS 250 ML IV ONE (15:00)
[2022-03-18 15:25] VITALS: BP 132/79
== END 2022-03-18 15:35 | disposition home or self-care (01) ==
LOC: M INFU 14:20
PROVIDERS: ATTEND Internal Medicine Gastroenterology
DX: K50.90 Crohn's disease, unspecified, without complications (principal); Z88.1 Allergy status to other antibiotic agents
CPT/HCPCS: 96365; J3380

== ENCOUNTER 2022-05-13 14:41 | Outpatient (CLI) | payer BC ==
[2022-05-13 14:50] VITALS: BP 127/78
[2022-05-13] MEDS ORDERED: VEDOLIZUMAB 300 MG in NS 250 ML IV ONE (15:00)
== END 2022-05-13 16:00 | disposition home or self-care (01) ==
LOC: M INFU 14:41
PROVIDERS: ATTEND Internal Medicine Gastroenterology
DX: K50.90 Crohn's disease, unspecified, without complications (principal); Z88.1 Allergy status to other antibiotic agents; Z88.2 Allergy status to sulfonamides
CPT/HCPCS: 96365; J3380

== ENCOUNTER 2022-07-08 14:40 | Outpatient (CLI) | payer BC ==
[2022-07-08 14:40] VITALS: BP 136/71
[2022-07-08] MEDS ORDERED: VEDOLIZUMAB 300 MG in NS 250 ML IV ONE (15:00)
[2022-07-08 16:05] VITALS: BP 128/74
== END 2022-07-08 16:05 | disposition home or self-care (01) ==
LOC: M INFU 14:40
PROVIDERS: ATTEND Internal Medicine Gastroenterology
DX: K50.90 Crohn's disease, unspecified, without complications (principal); Z88.1 Allergy status to other antibiotic agents
CPT/HCPCS: 96365; J3380

== ENCOUNTER → 2022-08-04 | Outpatient (CLI) | payer BC ==
[2022-08-04 10:04] LABS: BASO # 0.1 10^3/uL (0.0-0.2); BASO % 0.9 % (0.0-1.0); EOS # 0.2 10^3/uL (0.0-0.5); EOS % 3.7 % (0.0-3.0); HEMATOCRIT 41.2 % (36.0-47.0); HEMOGLOBIN 13.8 g/dl (12.0-15.5); LYMPH # 1.8 10^3/uL (1.5-5.0); LYMPH % 32.1 % (24.0-44.0); MEAN CORPUSCULAR HEMOGLOBIN 28.8 pg (27.0-33.0); MEAN CORPUSCULAR HGB CONC 33.5 g/dl (32.0-36.5); MEAN CORPUSCULAR VOLUME 85.8 fl (80.0-96.0); MONO # 0.3 10^3/uL (0.0-0.8); MONO % 5.9 % (2.0-8.0); NEUTROPHILS # 3.2 10^3/uL (1.5-8.5); PLATELET COUNT, AUTOMATED 224 10^3/uL (150-450); WHITE BLOOD COUNT 5.6 10^3/uL (4.0-10.0)
[2022-08-04 10:27] LABS: MALB URINE SIEMENS < 3.0 MG/L; MAU/CREAT RATIO 2.4 MCG/MG (0.0-30.0)
[2022-08-04 10:28] LABS: ALKALINE PHOSPHATASE 80 U/L (46-116); ALT/SGPT 20 U/L (7.0-40); AST/SGOT 13 U/L (<34); BILIRUBIN,TOTAL 0.5 MG/DL (0.3-1.2); BLOOD UREA NITROGEN 14 MG/DL (9-23); CALCIUM LEVEL 8.8 MG/DL (8.5-10.1); CARBON DIOXIDE LEVEL 29 MMOL/L (20-31); CHLORIDE LEVEL 106 MMOL/L (98-107); CHOLESTEROL LEVEL 231 MG/DL (<200); CHOLESTEROL RISK RATIO 5.92 (<5); CREATININE FOR GFR 0.78 MG/DL (0.55-1.30); GLOMERULAR FILTRATION RATE > 60.0 (>51); GLUCOSE, FASTING 85 MG/DL (60-100); LDL CHOLESTEROL 154.8 MG/DL (<100); POTASSIUM SERUM 4.3 MMOL/L (3.5-5.1); SODIUM LEVEL 139 MMOL/L (136-145); TOTAL PROTEIN 6.7 G/DL (5.7-8.2); TRIGLYCERIDES LEVEL 186 MG/DL (<150)
[2022-08-04 10:30] LABS: THYROID STIMULATING HORMONE 1.347 uIU/ML (0.55-4.78); TOTAL 25(OH) VITAMIN D 30.2 NG/ML (20.0-100.0)
== END ==
LOC: M LAB 08:55
PROVIDERS: ATTEND Family Medicine
DX: I10 Essential (primary) hypertension (principal); E78.5 Hyperlipidemia, unspecified

== ENCOUNTER → 2022-08-04 | Outpatient (CLI) | payer BC ==
[2022-08-04 10:04] LABS: BASO % 0.6 % (0.0-1.0); EOS # 0.2 10^3/uL (0.0-0.5); EOS % 4.1 % (0.0-3.0); HEMATOCRIT 42.2 % (36.0-47.0); HEMOGLOBIN 13.9 g/dl (12.0-15.5); LYMPH # 1.7 10^3/uL (1.5-5.0); LYMPH % 31.7 % (24.0-44.0); MEAN CORPUSCULAR HEMOGLOBIN 28.8 pg (27.0-33.0); MEAN CORPUSCULAR HGB CONC 32.9 g/dl (32.0-36.5); MEAN CORPUSCULAR VOLUME 87.6 fl (80.0-96.0); MONO # 0.3 10^3/uL (0.0-0.8); PLATELET COUNT, AUTOMATED 216 10^3/uL (150-450); RED BLOOD COUNT 4.82 10^6/uL (4.00-5.40); WHITE BLOOD COUNT 5.3 10^3/uL (4.0-10.0)
[2022-08-04 10:28] LABS: C REACTIVE PROTEIN QUANTITATIV < 0.40 MG/DL (<1.0)
[2022-08-04 10:29] LABS: ALKALINE PHOSPHATASE 80 U/L (46-116); ALT/SGPT 22 U/L (7.0-40); AST/SGOT 13 U/L (<34); BILIRUBIN,TOTAL 0.5 MG/DL (0.3-1.2); BLOOD UREA NITROGEN 15 MG/DL (9-23); CALCIUM LEVEL 8.9 MG/DL (8.5-10.1); CARBON DIOXIDE LEVEL 31 MMOL/L (20-31); CHLORIDE LEVEL 106 MMOL/L (98-107); CREATININE FOR GFR 0.77 MG/DL (0.55-1.30); GLOMERULAR FILTRATION RATE > 60.0 (>51); GLUCOSE, FASTING 86 MG/DL (60-100); POTASSIUM SERUM 4.5 MMOL/L (3.5-5.1); SODIUM LEVEL 140 MMOL/L (136-145); TOTAL PROTEIN 6.6 G/DL (5.7-8.2)
[2022-08-04 10:31] LABS: FOLATE 18.5 NG/ML (>5.4); VITAMIN B12 LEVEL 472 PG/ML (211-911)
[2022-08-04 10:37] LABS: ERYTHROCYTE SEDIMENTATION RATE 15 mm/hr (0-30)
== END ==
LOC: M LAB 08:53
PROVIDERS: ATTEND Internal Medicine Gastroenterology
DX: K50.818 Crohn's disease of both small and large intestine with other complication (principal)

== ENCOUNTER → 2022-08-04 | Outpatient (REF) | payer BC | LOC: M LAB REF 10:15 | PROVIDERS: ATTEND Internal Medicine Gastroenterology | DX: K50.818 Crohn's disease of both small and large intestine with other complication (principal) ==

== ENCOUNTER 2022-09-02 15:00 | Outpatient (CLI) | payer BC ==
[~2022-09-02] VITALS: Ht 167.6 cm; Wt 88.6 kg
[2022-09-02] MEDS ORDERED: VEDOLIZUMAB 300 MG in NS 250 ML IV ONE (15:30)
[2022-09-02 15:40] VITALS: BP 125/61; O2SAT 99
[2022-09-02 16:00] VITALS: BP 132/75; O2SAT 98
[2022-09-18] MEDS ORDERED: LEVOTAB10 PO (07:40)
[2022-09-18] MEDS ORDERED: OMEP40CA5 PO (07:40)
[2022-09-18] MEDS ORDERED: FLON1SPR NARES (11:04)
== END 2022-09-02 16:00 ==
LOC: M INFU 15:00
PROVIDERS: ATTEND Internal Medicine Gastroenterology
DX: K50.90 Crohn's disease, unspecified, without complications (principal); Z88.1 Allergy status to other antibiotic agents
CPT/HCPCS: 96365; J3380

== ENCOUNTER 2022-10-02 08:52 | Day surgery (SDC) | payer BC ==
[~2022-10-02] VITALS: Ht 167.6 cm; Wt 85.5 kg
[~2022-10-02 08:52] MED LIST changes: +FLON1SPR NARES; +LEVOTAB10 PO; +NS 1,000 ML IV ONE; +OMEP40CA5 PO; +propofoL 200 MG/20 ML VIAL As Ordered ONE
[2022-10-02] MEDS ORDERED: propofoL 200 MG/20 ML VIAL As Ordered ONE (11:21)
[2022-10-02 11:29] VITALS: TEMP 97.2
[2022-10-02 11:43] VITALS: BP 141/66; O2SAT 97
== END 2022-10-02 11:43 | disposition home or self-care (01) ==
LOC: M OPP 08:52
PROVIDERS: ATTEND Internal Medicine Gastroenterology
DX: K63.89 Other specified diseases of intestine (principal); Z79.620 Long term (current) use of immunosuppressive biologic; Z79.52 Long term (current) use of systemic steroids; Z79.899 Other long term (current) drug therapy; Z88.1 Allergy status to other antibiotic agents

== ENCOUNTER 2022-11-02 14:55 | Outpatient (CLI) | payer BC ==
[~2022-11-02] VITALS: Ht 170.2 cm; Wt 89.2 kg
[~2022-11-02 14:55] MED LIST changes: -NS 1,000 ML IV ONE; -propofoL 200 MG/20 ML VIAL As Ordered ONE
[2022-11-02] MEDS ORDERED: VEDOLIZUMAB 300 MG in NS 250 ML IV ONE (15:00)
[2022-11-02 15:24] VITALS: BP 135/78; O2SAT 98
[2022-11-02 16:58] VITALS: BP 130/73; O2SAT 99
== END 2022-11-02 16:55 ==
LOC: M INFU 14:55
PROVIDERS: ATTEND Internal Medicine Gastroenterology
DX: K50.90 Crohn's disease, unspecified, without complications (principal); Z88.1 Allergy status to other antibiotic agents
CPT/HCPCS: 96365; J3380

== ENCOUNTER 2022-12-30 14:31 | Outpatient (CLI) | payer BC ==
[~2022-12-30] VITALS: Ht 167.6 cm; Wt 90.3 kg
[2022-12-30 15:00] VITALS: BP 144/75; TEMP 97.7; O2SAT 99
[2022-12-30] MEDS ORDERED: VEDOLIZUMAB 300 MG in NS 250 ML IV ONE (15:00)
[2022-12-30 16:14] VITALS: BP 131/77; O2SAT 97
== END 2022-12-30 16:15 ==
LOC: M INFU 14:31
PROVIDERS: ATTEND Internal Medicine Gastroenterology
DX: K50.90 Crohn's disease, unspecified, without complications (principal); Z88.1 Allergy status to other antibiotic agents
CPT/HCPCS: 96365; J3380

== ENCOUNTER 2023-02-24 14:59 | Outpatient (CLI) | payer BC ==
[~2023-02-24] VITALS: Ht 167.6 cm; Wt 89.5 kg
[2023-02-24 15:15] VITALS: BP 131/69; O2SAT 100
[2023-02-24] MEDS ORDERED: VEDOLIZUMAB 300 MG in NS 250 ML IV ONE (16:00)
[2023-02-24 16:40] VITALS: BP 134/84; O2SAT 99
== END 2023-02-24 16:40 | disposition home or self-care (01) ==
LOC: M INFU 14:59
PROVIDERS: ATTEND Internal Medicine Gastroenterology
DX: K50.90 Crohn's disease, unspecified, without complications (principal); Z88.1 Allergy status to other antibiotic agents
CPT/HCPCS: 96365; J3380

== ENCOUNTER 2023-04-06 12:30 | Day surgery (SDC) | payer BC ==
[~2023-04-06] VITALS: Ht 167.6 cm; Wt 89.8 kg
[~2023-04-06 12:30] MED LIST changes: +BUPR150T12 PO; +OMEP-173 PO
[2023-04-06] MEDS: NS 1,000 ML IV ONE (13:15)
[2023-04-06 14:57] VITALS: TEMP 92.1
[2023-04-06 15:20] VITALS: BP 141/77; O2SAT 99
== END 2023-04-06 15:22 | disposition home or self-care (01) ==
LOC: M OPP 12:30
PROVIDERS: ATTEND Internal Medicine Gastroenterology
DX: K21.9 Gastro-esophageal reflux disease without esophagitis (principal); R12 Heartburn; G47.30 Sleep apnea, unspecified; Z99.89 Dependence on other enabling machines and devices; Z79.51 Long term (current) use of inhaled steroids; Z79.83 Long term (current) use of bisphosphonates; Z79.899 Other long term (current) drug therapy; Z88.1 Allergy status to other antibiotic agents

== ENCOUNTER 2023-04-21 10:50 | Outpatient (CLI) | payer BC ==
[~2023-04-21] VITALS: Ht 167.6 cm; Wt 93.2 kg
[2023-04-21 10:45] VITALS: BP 124/72; O2SAT 99
[2023-04-21] MEDS: VEDOLIZUMAB 300 MG in NS 250 ML IV ONE (11:07)
[2023-04-21 11:45] VITALS: BP 142/71; O2SAT 98
== END 2023-04-21 11:45 | disposition home or self-care (01) ==
LOC: M INFU 10:50
PROVIDERS: ATTEND Internal Medicine Gastroenterology
DX: K50.818 Crohn's disease of both small and large intestine with other complication (principal); Z88.1 Allergy status to other antibiotic agents
CPT/HCPCS: 96365; J3380

== ENCOUNTER 2023-06-16 13:30 | Outpatient (CLI) | payer BC ==
[~2023-06-16] VITALS: Ht 167.6 cm; Wt 90.9 kg
[2023-06-16 13:30] VITALS: BP 135/67; O2SAT 100
[2023-06-16] MEDS: VEDOLIZUMAB 300 MG in NS 250 ML IV ONE (13:57)
[2023-06-16 14:35] VITALS: BP 134/79; O2SAT 99
== END 2023-06-16 14:40 ==
LOC: M INFU 13:30
PROVIDERS: ATTEND Internal Medicine Gastroenterology
DX: K50.919 Crohn's disease, unspecified, with unspecified complications (principal); Z88.1 Allergy status to other antibiotic agents
CPT/HCPCS: 96365; J3380

== ENCOUNTER 2023-08-11 12:57 | Outpatient (CLI) | payer BC ==
[~2023-08-11] VITALS: Ht 167.6 cm; Wt 94.5 kg
[~2023-08-11 12:57] MED LIST changes: +ONDA-282; -ONDA4TAB6
[2023-08-11 13:30] VITALS: BP 143/71; O2SAT 96
[2023-08-11] MEDS: VEDOLIZUMAB 300 MG in NS 250 ML IV ONE (14:01)
[2023-08-11 14:40] VITALS: BP 141/78; O2SAT 100
== END 2023-08-11 14:40 ==
LOC: M INFU 12:57
PROVIDERS: ATTEND Internal Medicine Gastroenterology
DX: K50.90 Crohn's disease, unspecified, without complications (principal); Z88.1 Allergy status to other antibiotic agents
CPT/HCPCS: 96365; J3380

== ENCOUNTER 2023-10-06 14:05 | Outpatient (CLI) | payer BC ==
[~2023-10-06] VITALS: Ht 167.6 cm; Wt 93.2 kg
[2023-10-06 14:05] VITALS: BP 139/69; O2SAT 98
[2023-10-06] MEDS: VEDOLIZUMAB 300 MG in NS 250 ML IV ONE (14:33)
[2023-10-06 15:10] VITALS: BP 137/73; O2SAT 99
== END 2023-10-06 15:25 ==
LOC: M INFU 14:05
PROVIDERS: ATTEND Internal Medicine Gastroenterology
DX: K50.90 Crohn's disease, unspecified, without complications (principal); Z88.1 Allergy status to other antibiotic agents
CPT/HCPCS: 96365; J3380

== ENCOUNTER → 2023-10-13 | Outpatient (CLI) | payer BC | LOC: M WHC 09:53 | PROVIDERS: ATTEND Family Medicine | DX: Z12.31 Encounter for screening mammogram for malignant neoplasm of breast (principal) ==

== ENCOUNTER → 2024-10-04 | Outpatient (CLI) | payer BC ==
[2024-10-04 10:31] LABS: BASO # 0.1 10^3/uL (0.0-0.2); BASO % 0.8 % (0.0-1.0); EOS # 0.3 10^3/uL (0.0-0.5); EOS % 3.7 % (0.0-3.0); LYMPH # 2.0 10^3/uL (1.5-5.0); LYMPH % 25.3 % (24.0-44.0); MONO # 0.5 10^3/uL (0.0-0.8); MONO % 6.9 % (2.0-8.0); NEUTROPHILS # 4.9 10^3/uL (1.5-8.5); NEUTROPHILS % 62.8 % (36.0-66.0); PLATELET COUNT, AUTOMATED 229 10^3/uL (150-450)
[2024-10-04 10:50] LABS: CREATININE, URINE 148.2 MG/DL; MALB URINE SIEMENS < 3.0 MG/L
[2024-10-04 10:52] LABS: ALT/SGPT 28.0 U/L (7.0-40); AST/SGOT 22.0 U/L (<34); CALCIUM LEVEL 9.3 MG/DL (8.5-10.1); CARBON DIOXIDE LEVEL 31.0 MMOL/L (20-31); CHLORIDE LEVEL 101.0 MMOL/L (98-107); CHOLESTEROL LEVEL 229.0 MG/DL (<200); CHOLESTEROL RISK RATIO 6.43 (<5); CREATININE FOR GFR 0.85 MG/DL (0.55-1.30); GLOMERULAR FILTRATION RATE 79.9 (>51); LDL CHOLESTEROL 147.8 MG/DL (<100); NON-HDL-C 193.4 MG/DL; POTASSIUM SERUM 4.3 MMOL/L (3.5-5.1); SODIUM LEVEL 141.0 MMOL/L (136-145); TRIGLYCERIDES LEVEL 228.0 MG/DL (<150)
== END ==
LOC: M PLALAB 08:22
PROVIDERS: ATTEND Family Medicine
DX: I10 Essential (primary) hypertension (principal)